=== PATIENT | female | born 1970 | race Caucasian/White ===

== ENCOUNTER → 2018-06-25 | Outpatient (CLI) | payer BC ==
[~2018-06-25] MED LIST: ACE3 PO; ACET-1718 PO; DAR100 PO; DESO1TAB33 PO; DIURETIC PO; DOMPERIDONE PO; HCTZ25 PO; IBU600 PO; IBUP200C74 PO; LIS10 PO; LISINOPRIL PO; MET500 PO; METF-1 PO; METFORMIN PO; ONDA4TAB PO; PANT20TA27 PO; PRILOSEC PO; [UNRECOGNIZED DRUG - CODE] PO
== END ==
LOC: LAB 15:12
PROVIDERS: ATTEND Surgery
DX: I10 Essential (primary) hypertension (principal)
CPT/HCPCS: 36415; 82565

== ENCOUNTER → 2018-07-01 | Outpatient (CLI) | payer BC ==
[~2018-07-01] MED LIST changes: +IOPAMIDOL 61% 75 ML INFUS BTL 75 ML ONE
--- NOTE | 2018-07-01 10:25 | RADIOLOGY IMAGING REPORT ---
FACILITY: [facility] - [place] PATIENT NAME: Eneida Iniguez : 1970 MR: [id number] V: [id number] EXAM DATE: ORDERING PHYSICIAN: QUIN SOLIZ TECHNOLOGIST: Location: [facility] - [place] Patient: Eneida Iniguez : 1970 Visit/Account:[id number] Date of Sevice: 07/01/2018 CT ABDOMEN PELVIS W/ CON HISTORY: abdominal pain TECHNIQUE: CT abdomen and pelvis 100 cc of Isovue 370 IV. One of the following dose optimization te chniques was utilized in the performance of this exam: automated exposure control; adjustment of the mA and/or kV according to the patient's size; or use of an iterative reconstruction technique. Speci fic details can be referenced in the facility's radiology CT exam operational policy. COMPARISON: None. FINDINGS: Liver/gallbladder: Liver demonstrates normal enhancement. Nodular contour to the surface is seen con sistent with cirrhosis. There are changes from prior cholecystectomy. The portal vein is patent. Spleen: Splenomegaly is seen, measuring 15.5 cm. Adrenals: Normal. Pancreas: Normal enhancement without evidence of mass. Kidneys/: Simple cyst lower pole left kidney is seen. There is no suspicious mass or calculus. Pelvis: Urinary bladder is normal. GI: The colon, small bowel, and stomach are normal. Vessels/spaces/nodes: There are several normal-sized periaortic and aortocaval lymph nodes. There is a small amount of groundglass density adjacent to the retroperitoneal lymph nodes at the level of th e inferior abdominal aorta near the bifurcation. Bones/soft tissues: There are no lytic or blastic bone lesions. Soft tissues are normal. Visualized lung bases: Clear. IMPRESSION: 1. Nodular surface contour to the liver, consistent with cirrhosis. 2. Splenomegaly. 3. Numerous retroperitoneal lymph nodes, normal size however there is some adjacent hazy opacity. Thi s can be seen in mesenteric adenitis. This can be a cause of abdominal pain. Report Dictated By: Ashok Sorensen at 07/01/2018 10:16 AM Report E-Signed By: Ashok Sorensen at 07/01/2018 10:20 AM WSN:[id number]
== END ==
LOC: CT 01:14
PROVIDERS: ATTEND Surgery
DX: K74.60 Unspecified cirrhosis of liver (principal)
CPT/HCPCS: 74177; Q9967

== ENCOUNTER → 2018-07-09 | Outpatient (CLI) | payer BC ==
[~2018-07-09] MED LIST changes: -IOPAMIDOL 61% 75 ML INFUS BTL 75 ML ONE
[2018-07-09 10:11] LABS: PLATELET COUNT, AUTOMATED 96 K/uL (150-450)
== END ==
LOC: LAB 10:00
PROVIDERS: ATTEND Surgery
DX: K74.60 Unspecified cirrhosis of liver (principal); R10.9 Unspecified abdominal pain
CPT/HCPCS: 36415; 82040; 82247; 82310; 82374; 82435; 82565; 82947; 83690; 84075; 84132; 84155; 84295; 84450; 84460; 84520; 85025; 85730

== ENCOUNTER → 2018-07-10 | Outpatient (CLI) | payer BC ==
[2018-07-10 15:26] LABS: INR 1.09
== END ==
LOC: LAB 14:35
PROVIDERS: ATTEND Surgery
DX: K74.60 Unspecified cirrhosis of liver (principal)
CPT/HCPCS: 36415; 85610

== ENCOUNTER → 2018-08-14 | Day surgery (SDC) | payer BC ==
[2018-08-14] VITALS (7 sets, daily range): BP systolic 98–125; BP diastolic 62–83
[~2018-08-14] VITALS: Ht 162.6 cm; Wt 98.4 kg
[~2018-08-14] MED LIST changes: +LIDOCAINE/SOD BICARB 8.4% SYR ID ONE; +NORMOSOL R SOLN(*) 1000 ML BAG 1,000 ML IV PRN; +PANT40TA65 PO; +PROPOFOL EMUL(*) 10MG/ML 20 ML 20 ML ONE
--- NOTE | 2018-08-14 10:23 | Short(Outpt) Discharge Summary ---
Discharge Summary Reason for Hosp/Final Diag: (1) Abdominal pain Hospital Course & Plan: and vomiting pt presented for egd/colonoscopy. she tolerated the procedure well. path pending. she will be discharged home when criteria met. Departure Discharge to: Home Discharge Instructions Home Meds Reported Medications Pantoprazole Sodium (PANTOPRAZOLE SODIUM) 40 Mg Tablet.dr, 40 MG PO QDAY, TAB.SR 08/07/18 Ibuprofen (ADVIL) 200 Mg Capsule, 2 CAP PO PRN, CAPSULE 05/04/14 Metformin Hcl (Glucophage) 500 Mg Tab, 500 MG PO QDAY 07/06/10 Lisinopril (Prinivil) 10 Mg Tab, 10 MG PO QDAY, 0 Refills 07/06/10 Hydrochlorothiazide (Hydrochlorothiazide) 25 Mg Tab, 2 TAB PO QDAY 07/06/10 Diet: Regular Activity: As Tolerated Special Instructions: we will call you in 10 days with biopsy results QUIN SOLIZ Aug 14, 2018 10:23
== END ==
LOC: OR 01:58
PROVIDERS: ATTEND Surgery
DX: K62.1 Rectal polyp (principal)
CPT/HCPCS: 00813; 43239; 45380; 87077; 88305; 88344; J2704

== ENCOUNTER 2018-10-13 01:28 | Day surgery (SDC) | payer BC ==
[~2018-10-13] VITALS: Ht 162.6 cm; Wt 101.6 kg
[~2018-10-13 01:28] MED LIST changes: -LIDOCAINE/SOD BICARB 8.4% SYR ID ONE; -NORMOSOL R SOLN(*) 1000 ML BAG 1,000 ML IV PRN; +OMEP40CA48 PO; -PROPOFOL EMUL(*) 10MG/ML 20 ML 20 ML ONE
[2018-10-13] MEDS ORDERED: ceFAZolin(*) 2GM/D5W 50ML 50 ML IVPB ONE (06:05)
[2018-10-13] MEDS ORDERED: LIDOCAINE/SOD BICARB 8.4% SYR ID ONE (10:00)
[2018-10-13] MEDS ORDERED: MIDAZOLAM 2 MG/2 ML VIAL IVP PRN (10:00)
[2018-10-13] MEDS: NORMOSOL R SOLN(*) 1000 ML BAG 1,000 ML IV PRN ×2 (10:49→13:28)
[2018-10-13 11:23] VITALS: BP 121/81
--- NOTE | 2018-10-13 11:27 | EKG ---
FACILITY: [facility] PATIENT NAME: IQRA BRIZUELA : [id number] MR: [id number] V: [id number] EXAM DATE: ORDERING PHYSICIAN: VANDANA SCHROEDER TECHNOLOGIST: SHASHA Pina Reason : PREOP-LAPAROSCO Blood Pressure : / mmHG Vent. Rate : 079 BPM Atrial Rate : 079 BPM P-R Int : 154 ms QRS Dur : 084 ms QT Int : 392 ms P-R-T Axes : 012 -18 002 degrees QTc Int : 449 ms Normal sinus rhythm Inferior infarct , age undetermined Anterolateral infarct , age undetermined Abnormal ECG No previous ECGs available Confirmed by LISANDRA HOLDEN ([id number]) on 10/13/2018 2:29:53 PM Referred By: ALEXANDRE Confirmed By:LISANDRA HOLDEN
[2018-10-13] MEDS ORDERED: BUPIVACAINE/EPI 0.5% 50ML VIAL INFIL ONE (13:17)
[2018-10-13] MEDS ORDERED: fentaNYL CITR 100 MCG/2 ML AMP ONE ×2 (13:39→15:01)
[2018-10-13] MEDS ORDERED: ROCURONIUM BROM 10 MG/ML 10 ML ONE (13:41)
[2018-10-13] MEDS ORDERED: PROPOFOL EMUL(*) 10MG/ML 20 ML 20 ML ONE (13:41)
[2018-10-13] MEDS ORDERED: ONDANSETRON 4 MG/2 ML VIAL ONE (13:41)
[2018-10-13] MEDS ORDERED: DEXAMETHASONE SOD PHOS 10MG/ML ONE (13:41)
[2018-10-13] MEDS ORDERED: SUGAMMADEX SOD 500 MG/5 ML SDV ONE (14:28)
[2018-10-13] MEDS ORDERED: TRAM-420 PO (15:07)
--- NOTE | 2018-10-13 15:10 | Short(Outpt) Discharge Summary ---
Discharge Summary Reason for Hosp/Final Diag: (1) Abdominal pain Hospital Course & Plan: pt presented for dx lap. she tolerated the procedure well. she will be discharged home when criteria met. Discharge Instructions Home Meds Active Scripts Tramadol Hcl (TRAMADOL HCL) 50 Mg Tablet, 50 MG PO Q6H PRN for PAIN, #14 TAB Prov:QUIN TONEY 10/13/18 Reported Medications Omeprazole (OMEPRAZOLE) 40 Mg Capsule.dr, 40 MG PO QDAY, CAP 10/07/18 Ibuprofen (ADVIL) 200 Mg Capsule, 2 CAP PO PRN, CAPSULE 05/04/14 Metformin Hcl (Glucophage) 500 Mg Tab, 500 MG PO QDAY 07/06/10 Lisinopril (Prinivil) 10 Mg Tab, 10 MG PO QDAY, 0 Refills 07/06/10 Hydrochlorothiazide (Hydrochlorothiazide) 25 Mg Tab, 2 TAB PO QDAY 07/06/10 Discontinued Reported Medications Pantoprazole Sodium (PANTOPRAZOLE SODIUM) 40 Mg Tablet.dr, 40 MG PO QDAY, TAB.SR 08/07/18 Diet: Regular Activity: As Tolerated Special Instructions: f/u dr. soumya toney 10 days ([phone]). ok to shower tomorrow. take stool softener if taking pain meds. QUIN TONEY Oct 13, 2018 15:10
--- NOTE | 2018-10-13 15:17 | Post Operative Progress Note ---
Post Operative Progress Note Date: Oct 13, 2018 Time: 15:11 Surgeon: dr. soumya toney #[id number] Titrator: none Anesthesia: gen, local dr. snyder Pre-Op Diagnosis: abd pain Post-Op Diagnosis: same Findings: cirrhosis Procedure(s): dx lap, roosevelt, liver wedge bx Specimen Removed:(May be N/A): liver bx Complications: none Estimated Blood Loss: minimal Date OP Note Dictated: Oct 13, 2018 Time OP Note Dictated: 15:12 QUIN TONEY Oct 13, 2018 15:17
--- NOTE | 2018-10-13 15:32 | OPERATIVE REPORT 1 ---
EVENT DATE: October 13, 2018 SURGEON: Brandt Jones MD ANESTHESIOLOGIST: Bay Leon MD ANESTHESIA: General and local. TERMINAL PRESS OPERATOR: None. PREOPERATIVE DIAGNOSIS Abdominal pain. POSTOPERATIVE DIAGNOSIS Abdominal pain. PROCEDURE PERFORMED 1. Diagnostic laparoscopy. 2. Lysis of adhesions. 3. Liver wedge biopsy. FLUIDS IV Crystalloid. ESTIMATED BLOOD LOSS Minimal. SPECIMENS Liver wedge biopsy. COMPLICATIONS None. INDICATIONS This is a 48-year-old female with chronic abdominal pain. She has also had vomiting. A thorough workup has been performed and it has not revealed the source of the pain. Risk and benefits of the procedure were explained and consent was signed. DESCRIPTION OF PROCEDURE The patient was taken to the operating room and placed in the supine position. General anesthesia was administered per the Anesthesia team. The patient was prepped and draped in the normal sterile fashion. Local analgesia was injected into the dermis below the left costal margin and a small incision was made. Optiview technique was used to easily enter the abdomen. Pneumoperitoneum was achieved after injecting local analgesia under direct vision. Two more left- sided 5 mm ports were placed, followed by a 5 mm supraumbilical port. I inspected the abdomen and there was no injury upon entry. The abdomen was thoroughly inspected including much of the small bowel and colon. The abdominal wall was inspected for hernias and there were no significant hernias, no lymph nodes were identified. The stomach appeared within normal limits. The patient did have a severely cirrhotic appearing liver. A wedge biopsy was taken from the edge with cautery scissors. Hemostasis was assured. There was also a portion of omentum that was tethered to the liver holding the duodenum like a sling. This omentum was taken down with LigaSure. Hemostasis was assured. I had attempted to remove lymph nodes in two places where it appeared there were lymph nodes in the mesentery. However, there were no lymph nodes here. One of these pieces was sent as mesenteric biopsy. Hemostasis was assured. Bowel was confirmed to be viable. The ports were removed under direct vision. Hemostasis was assured. The final port was removed. All skin incisions were closed with 4-0 Monocryl, subcuticular stitches. More local analgesia was injected. Appropriate dressings were applied. The patient tolerated the procedure well. There were no complications. [facility]
[2018-10-13 15:45] VITALS: BP 113/49
[2018-10-13] MEDS ORDERED: traMADol 50 MG TAB ONE (15:52)
[2018-10-13 16:00] VITALS: BP 112/71
[2018-10-13 16:14] VITALS: BP 120/79
[2018-10-13 16:15] VITALS: BP 124/74
== END 2018-10-13 15:45 | disposition home or self-care (01) ==
LOC: OR 01:28
PROVIDERS: ATTEND Surgery
DX: K74.60 Unspecified cirrhosis of liver (principal); K66.0 Peritoneal adhesions (postprocedural) (postinfection); Z79.84 Long term (current) use of oral hypoglycemic drugs; Z79.899 Other long term (current) drug therapy
CPT/HCPCS: 36416; 47379; 49329; 82948; 84703; 93005; J1100; J2405; J2704; J3010; 82310; 82374; 82435; 82565; 82947; 84132; 84295; 84520; 88305; 88313; J0690